=== PATIENT | female | born 1985 | race American Indian/Alaskan Native ===

== ENCOUNTER 2021-12-22 14:54 | Observation (INO) | payer OTHER ==
[2021-12-22] MEDS ORDERED: IBUPROFEN 600 MG TAB PO PRN (15:12)
[2021-12-22] MEDS ORDERED: ACETAMINOPHEN 325 MG TAB PO PRN (15:12)
[2021-12-22] MEDS ORDERED: oxyCODONE /ACETAMINOPHEN 5-325MG TAB PO PRN (15:12)
[2021-12-22] MEDS ORDERED: ALUM-MAG HYDROXIDE-SIMETHICONE 200-200-20MG/5ML ORAL LIQD 30 ML PO PRN (15:12)
--- NOTE | 2021-12-22 15:12 | History and Physical Report ---
History of Present Illness Date of examination: 12/23/21 Date of admission: 12/22/21 Chief complaint: Pt here with the above c/o. States she has dx of PCOS and had pap and bloodwork done in [place]. Dx of PCOS was just given last week. States no sonogram or blood work was done at this time just based on her histroy she gave provider. States she had myomectomy with Dr. [place] in January of 2021 that was abdominal and several small fibroids were removed. Pt was diagnosed with 6cm mass in the ut erus in my office and it is beleived to be a fibroids. She continues to have heavy bleeding. She was seen in ED in [place] and hgb was 9. she c/o bleeding through several pads per hours for the last 10 days or more.She is being admitted for iv therapy and evaluation for need for transfusion. States she feels fatigue.No chest pain or SOB at this time. Vital Signs: Patient Profile: 36 Years Old Female LMP: 09/2021 Height: 67 inches Weight: 221 pounds BMI: 34.61 Temp: 98.0 degrees F BP sittin / 72 (left arm) Menstrual History: LMP (date): 09/2021 LMP - Character: normal [employer] History Uterine Surgery (not C/S): negative Operations: positive Breast Reduction: 2010 Myomectomy:01/2021 Hospitalizations: negative Anesthesia Complications: negative Abnormal PAP: negative Uterine Anomaly: negative CHERISE Exposure: negative Infertility: negative Relevant Family Hx: DM CHF Sickle Cell DZ Medical Hx Comments: PCOS Asthma Fibroids Pre diabetic Infection History HIV Risk Eval: no Personal hx. of genital herpes: no Hx of STD: Trichomonas Other: chlamydia GC Active Medications (reviewed today): Provera 10 mg tablet (medroxyprogesterone) Take 1 tablet by mouth once a day ibuprofen 800 mg tablet (ibuprofen) 1 tablet by mouth every eight hours as needed for pain Current Allergies (reviewed today): No known allergies Past Medical History: Reviewed and updated today: Asthma Fibroids PCOS Past Surgical History: Reviewed and updated today: positive Breast Reduction: 2010 Myomectomy:01/2021 General Comments - FH: DM CHF Sickle Cell DZ Social History: Patient is single Smoking History: Patient has never smoked. occ etoh; no tobacco/ no drugs wound care services Risk Factors: Smoked Tobacco Use: Never smoker Smokeless Tobacco Use: Never Passive Smoke Exposure: no HIV High Risk Behavior: no Exercise: no Seatbelt Use: 100 % Review of Systems See HPI Past History Past Medical History: other (see hpi) Past Surgical History: other (see hpi) Family/Genetic History: other (see hpi) Social history: other (see hpi) Medications and Allergies Allergies Allergy/AdvReac Type Severity Reaction Status Date / Time No Known Allergies Allergy Unverified 12/22/21 15:03 Review of Systems All systems: negative Results Result Diagrams: 12/22/21 20:22 12/22/21 20:22 All other labs normal. Assessment and Plan - Patient Problems (1) Uterine fibroid Current Visit: No Status: Acute (2) Menorrhagia Current Visit: No Status: Acute (3) Dysmenorrhea Current Visit: No Status: Acute
[2021-12-22] MEDS: ONDANSETRON 4 MG/2 ML INJ IV PRN (20:04)
[2021-12-22 21:03] LABS: Basophils % (Auto) 0.5 % (0.0-1.8); Eosinophils # (Auto) 0.4 K/mm3 (0.0-0.4); Eosinophils % (Auto) 5.1 % (0.0-4.3); Hemoglobin 7.3 gm/dl (10.1-14.3); Lymphocytes # (Auto) 2.4 K/mm3 (1.2-5.4); Lymphocytes % (Auto) 32.4 % (13.4-35.0); Mean Corpuscular HGB Conc 32 % (30-34); Monocytes # (Auto) 0.7 K/mm3 (0.0-0.8); Platelet Count 244 K/mm3 (140-440); Red Blood Count 3.39 M/mm3 (3.65-5.03); Red Cell Distribution Width 17.7 % (13.2-15.2)
[2021-12-22 21:19] LABS: Alanine Aminotransferase 10 units/L (7-56); Albumin 4.1 g/dL (3.9-5); BUN/Creatinine Ratio 12; Blood Urea Nitrogen 13 mg/dL (7-17); Calcium 9.1 mg/dL (8.4-10.2); Hemolysis Index 4
[2021-12-22 21:27] LABS: Mean Corpuscular Volume 68 fl (79-97)
[2021-12-22] MEDS: ESTROGENS, CONJUGATED 25 MG INJ IV SCH (22:10)
[2021-12-23] MEDS ORDERED: SODIUM CHLORIDE 0.9% 500 ML 500 ML IV ONE (01:42)
[2021-12-23] MEDS ORDERED: ALBUTEROL 2.5 MG/3 ML NEBU IH PRN (02:15)
[2021-12-23] MEDS: ESTROGENS, CONJUGATED 25 MG INJ IV SCH (04:37)
[2021-12-23] MEDS: ONDANSETRON 4 MG/2 ML INJ IV PRN (06:12)
--- NOTE | 2021-12-23 08:38 | Progress Note ---
Assessment and Plan - Patient Problems (1) Uterine fibroid Current Visit: No Status: Acute (2) Menorrhagia Current Visit: No Status: Acute Plan to address problem: -con't with IV estrogen times one more dose -meds for the nausea -dc this pm if h/h stable (3) Dysmenorrhea Current Visit: No Status: Acute Plan to address problem: -pain well controlled at this time Subjective - Subjective Date of service: 12/23/21 Principal diagnosis: intratuterine fibroid 2)anemia 3)menorrhagia Interval history: Pt states bleeding did decrease with the IV estrogen. She does c/o having nausea with eating. I advised that this can be a side affect of the high does estrogen. She expressed understanding. One unit of blood to be given today. Will re- evaluate for d/c this pm if bleeding much improved and h/h stable. Patient reports: appetite normal, voiding normally, nauseated, no dizzy ambulation Objective - Vital Signs Latest vital signs: Vital Signs Temp Pulse Resp BP BP Pulse Ox 12/23/21 08:26 98 12/23/21 05:22 98.8 F 64 16 104/58 98 12/23/21 00:36 98.9 F 64 16 100/52 96 12/22/21 20:52 98.9 F 66 16 110/52 98 12/22/21 20:00 18 98 12/22/21 18:45 100 12/22/21 18:19 98.8 F 71 20 114/72 100 Intake and Output 12/22/21 12/23/21 12/23/21 22:59 06:59 14:59 Intake Total 120 240 Balance 120 240 Intake: Intake, Free Water 120 240 Other: Voiding Method Toilet Toilet Toilet # Voids Void 1 2 Weight 102.058 kg - Exam Lungs: Present: Normal air movement Abdomen: Present: normal appearance, soft. Absent: distention, tenderness, guarding Deep Tendon Reflex Grade: Normal +2 - Labs Labs: Abnormal lab results 12/22/21 12/22/21 12/23/21 Range/Units 20:22 20:22 07:51 RBC 3.39 L (3.65-5.03) M/mm3 Hgb 7.3 L (10.1-14.3) gm/dl Hct 23.0 L (30.3-42.9) % MCV 68 L (79-97) fl MCH 22 L (28-32) pg RDW 17.7 H (13.2-15.2) % [place] % (Auto) 9.0 H (0.0-7.3) % Eos % (Auto) 5.1 H (0.0-4.3) % Glucose 102 H (65-100) mg/dL Crossmatch See Detail
[2021-12-23] MEDS ORDERED: SODIUM CHLORIDE 0.9% 250ML 250 ML ONE (09:06)
--- NOTE | 2021-12-23 14:42 | Event Note ---
Date: 12/23/21 Pt states she is feeling much better. No pain or nausea or fatigue at this time. Will await post xfusion h/h and if stable d/c home on ocps until we are able to do scheduled myomectomy. Pt expressed understanding. Will also need f/u with heme for iron transfusions oupt pt to avoid having to be re-admitted for xfusion. Again pt expressed understanding and agrees with plan of care.
--- NOTE | 2021-12-23 14:56 | Discharge Summary ---
Providers - Providers Date of Admission: 12/22/21 17:36 Date of discharge: 12/23/21 Attending physician: UNIQUE MCMULLEN Primary care physician: UNIQUE MCMULLEN Hospitalization Reason for admission: other (bleeding; anemia) Procedure: other (blood transfusion) Condition at discharge: Good Disposition: 01 HOME / SELF CARE / HOMELESS - Discharge Diagnoses (1) Uterine fibroid Status: Acute (2) Menorrhagia Status: Acute (3) Dysmenorrhea Status: Acute Plan - Provider Discharge Summary Additional instructions: [] Smoking cessation referral if applicable(refer to patient education folder for contact #) [] Refer to [facility] Booklet Call your doctor immediately for: * Fever > 100.5 * Heavy vaginal bleeding ( >1 pad per hour) * Severe persistent headache * Shortness of breath * Reddened, hot, painful area to leg or breast * Drainage or odor from incision. * Keep incision clean and dry at all times and follow doctor's instructions regarding bathing/showering - Follow up plan Follow up: UNIQUE MCMULLEN MD [Primary Care Provider] - 7 Days ARMANDO VAZQUEZ MD [Referring] - 7 Days
[2021-12-23 15:13] LABS: Hematocrit 28.5 % (30.3-42.9); Hemoglobin 9.1 gm/dl (10.1-14.3)
[2021-12-23 16:55] VITALS: BP 104/59
== END 2021-12-23 17:53 | disposition home or self-care (01) ==
LOC: 3A 14:54 → UNDOADMOB 14:54 → OB 17:36
PROVIDERS: ADMIT Obstetrics & Gynecology; ATTEND Obstetrics & Gynecology
DX: D25.9 Leiomyoma of uterus, unspecified (principal); Z20.822 Contact with and (suspected) exposure to COVID-19; N92.0 Excessive and frequent menstruation with regular cycle; N94.6 Dysmenorrhea, unspecified; D64.9 Anemia, unspecified; Z79.899 Other long term (current) drug therapy; Z98.890 Other specified postprocedural states
CPT/HCPCS: 36415; 36430; 80053; 85014; 85018; 85025; 86850; 86900; 86901; 86920; 96374; 96375; 96376; G0378; G0379; J1410; J2405; J7050; P9016; U0003